=== PATIENT | male | born 1930 | race Caucasian/White ===

== ENCOUNTER 2019-08-16 06:13 | Day surgery (SDC) | payer MEDICARE, OTHER ==
[~2019-08-16] VITALS: Ht 180.3 cm; Wt 76.2 kg
[2019-08-16] VITALS (16 sets, daily range): BP systolic 108–140; BP diastolic 55–68
[~2019-08-16 06:13] MED LIST: ALEN70TA60 PO; CALCIUM PO; CHOL2000 PO; DIGO125T97 PO; DILT-35 PO; DOCU100C41 PO; PSYL3.4P5 PO; RANI150T8 PO; SIMV-42 PO
[2019-08-16] MEDS ORDERED: atropine 0.1mg/ml 10ml syringe IV ONE (06:40)
[2019-08-16] MEDS ORDERED: fentaNYL/PF 50MCG/1 ML 2ML syringe IV ONE (06:40)
[2019-08-16] MEDS ORDERED: MIDAZolam 1mg/ml 10ml vial IV ONE (06:40)
[2019-08-16] MEDS ORDERED: FERR325T28 PO (07:05)
[2019-08-16] MEDS ORDERED: RIVA15TA PO (07:05)
[2019-08-16] MEDS ORDERED: FAMO20TA8 PO (07:05)
[2019-08-16] MEDS ORDERED: DILT120C10 PO (07:05)
[2019-08-16] MEDS ORDERED: [UNRECOGNIZED DRUG - CODE] (07:05)
[2019-08-16 07:07] LABS: BASOPHILS % (AUTO) 1.1 % (0-1); EOSINOPHILS # (AUTO) 0.1 X10'3 (0-0.9); EOSINOPHILS % (AUTO) 1.9 % (0-6); HEMOGLOBIN 9.7 g/dl (14.0-17.9); LYMPHOCYTES # (AUTO) 0.5 X10'3 (1.1-4.8); LYMPHOCYTES % (AUTO) 13.8 % (21-51); MEAN CORPUSCULAR HEMOGLOBIN 34.5 PG (27.0-31.0); MEAN CORPUSCULAR HGB CONC 33.4 g/dL (33.0-36.5); MEAN CORPUSCULAR VOLUME 103.4 FL (78-98); MEAN PLATELET VOLUME 7.7 FL (7.4-10.4); MONOCYTES # (AUTO) 0.6 X10'3 (0-0.9); MONOCYTES % (AUTO) 17.3 % (2-12); NEUTROPHILS # (AUTO) 2.5 X10'3 (1.8-7.7); NEUTROPHILS % (AUTO) 65.9 % (42-75); PLATELET COUNT 319 X10'3 (140-440); RED CELL DISTRIBUTION WIDTH 24.9 % (11.5-14.5); WHITE BLOOD COUNT 3.7 X10'3 (4.5-11.0)
[2019-08-16 07:19] LABS: ALBUMIN 3.3 G/DL (3.4-5.0); ANION GAP 5 (8-16); BLOOD UREA NITROGEN 12 MG/DL (7-18); BUN/CREATININE RATIO 13.5 (5.4-32.0); CALCIUM 8.3 MG/DL (8.5-10.1); CHLORIDE 108 MMOL/L (99-107); CREATININE 0.89 MG/DL (0.60-1.10); GLUCOSE 115 MG/DL (70-104); MAGNESIUM 2.1 MG/DL (1.5-2.4); POTASSIUM 3.9 MMOL/L (3.5-5.1); SODIUM 141 MMOL/L (135-145); TOTAL CARBON DIOXIDE 27.6 MMOL/L (24-32); eGFR 81 ML/MIN
--- NOTE | 2019-08-16 07:56 | NUR ---
Notified pt's procedure was complete per pt request
[2019-08-16 09:00] LABS: TOTAL CELLS COUNTED 100
[2019-08-16 09:01] LABS: ANISOCYTOSIS 3+; PLATELET ESTIMATE NORMAL
[2019-08-16 09:02] LABS: TOXIC GRANULATION 1+
== END 2019-08-16 09:57 | disposition home or self-care (01) ==
LOC: SSTAY O 06:13
PROVIDERS: ATTEND Internal Medicine Cardiovascular Disease
DX: I48.91 Unspecified atrial fibrillation (principal); I25.10 Atherosclerotic heart disease of native coronary artery without angina pectoris; K21.9 Gastro-esophageal reflux disease without esophagitis; I47.1 Supraventricular tachycardia; M19.90 Unspecified osteoarthritis, unspecified site; Z79.899 Other long term (current) drug therapy; Z95.5 Presence of coronary angioplasty implant and graft; Z90.49 Acquired absence of other specified parts of digestive tract; Z96.652 Presence of left artificial knee joint; Z88.8 Allergy status to other drugs, medicaments and biological substances; Z87.01 Personal history of pneumonia (recurrent)
CPT/HCPCS: 36415; 80048; 83735; 85025; 85610; 92960; 93005; J2250; J3010

== ENCOUNTER 2019-09-23 09:04 | Day surgery (SDC) | payer MEDICARE, OTHER ==
[2019-09-23] VITALS (17 sets, daily range): BP systolic 111–134; BP diastolic 53–76
[~2019-09-23] VITALS: Ht 180.3 cm; Wt 74.4 kg
[~2019-09-23 09:04] MED LIST changes: -DILT-35 PO; +DILT120C10 PO; +FAMO20TA8 PO; +FERR325T28 PO; -PSYL3.4P5 PO; -RANI150T8 PO; +RIVA15TA PO; +[UNRECOGNIZED DRUG - CODE]
[2019-09-23] MEDS ORDERED: MIDAZolam 1mg/ml 10ml vial IV ONE (09:50)
[2019-09-23] MEDS ORDERED: fentaNYL/PF 50MCG/1 ML 2ML syringe IV ONE (09:50)
[2019-09-23] MEDS ORDERED: normal saline 1000ml 1,000 ML IV SCH (09:50)
[2019-09-23 10:22] LABS: BASOPHILS % (AUTO) 1.1 % (0-1); EOSINOPHILS % (AUTO) 0.7 % (0-6); HEMATOCRIT 22.7 % (42.0-52.0); HEMOGLOBIN 7.8 g/dl (14.0-17.9); LYMPHOCYTES # (AUTO) 0.5 X10'3 (1.1-4.8); LYMPHOCYTES % (AUTO) 16.1 % (21-51); MEAN CORPUSCULAR HEMOGLOBIN 37.5 PG (27.0-31.0); MEAN CORPUSCULAR HGB CONC 34.5 g/dL (33.0-36.5); MEAN CORPUSCULAR VOLUME 108.8 FL (78-98); MEAN PLATELET VOLUME 8.4 FL (7.4-10.4); MONOCYTES # (AUTO) 0.8 X10'3 (0-0.9); MONOCYTES % (AUTO) 28.6 % (2-12); NEUTROPHILS # (AUTO) 1.6 X10'3 (1.8-7.7); NEUTROPHILS % (AUTO) 53.5 % (42-75); PLATELET COUNT 215 X10'3 (140-440); RED BLOOD COUNT 2.09 X10'6 (4.70-6.10); RED CELL DISTRIBUTION WIDTH 26.8 % (11.5-14.5)
[2019-09-23] MEDS ORDERED: AMIO200T27 PO (10:25)
[2019-09-23 10:27] LABS: ALBUMIN 3.3 G/DL (3.4-5.0); ANION GAP 7 (8-16); BLOOD UREA NITROGEN 15 MG/DL (7-18); CALCIUM 7.8 MG/DL (8.5-10.1); CHLORIDE 108 MMOL/L (99-107); CREATININE 0.94 MG/DL (0.60-1.10); GLUCOSE 105 MG/DL (70-104); MAGNESIUM 2.1 MG/DL (1.5-2.4); POTASSIUM 4.2 MMOL/L (3.5-5.1); SODIUM 143 MMOL/L (135-145); TOTAL CARBON DIOXIDE 28.1 MMOL/L (24-32); eGFR 76 ML/MIN
[2019-09-23 10:53] LABS: TOTAL CELLS COUNTED 100
[2019-09-23 10:54] LABS: ANISOCYTOSIS 3+; PLATELET ESTIMATE NORMAL
[2019-09-23 10:55] LABS: ELLIPTOCYTES 1+; HYPOCHROMASIA 1+; POLYCHROMASIA FEW; SCHISTOCYTES FEW; TEAR DROP CELLS 1+
== END 2019-09-23 14:10 | disposition home or self-care (01) ==
LOC: SSTAY O 09:04
PROVIDERS: ATTEND Internal Medicine Cardiovascular Disease
DX: I48.4 Atypical atrial flutter (principal); I25.10 Atherosclerotic heart disease of native coronary artery without angina pectoris; D46.9 Myelodysplastic syndrome, unspecified; I47.1 Supraventricular tachycardia; K21.9 Gastro-esophageal reflux disease without esophagitis; M19.90 Unspecified osteoarthritis, unspecified site; M81.0 Age-related osteoporosis without current pathological fracture; Z95.5 Presence of coronary angioplasty implant and graft; Z79.899 Other long term (current) drug therapy; Z90.49 Acquired absence of other specified parts of digestive tract; Z96.652 Presence of left artificial knee joint; Z88.8 Allergy status to other drugs, medicaments and biological substances
CPT/HCPCS: 36415; 80048; 83735; 85025; 85610; 92960; 93005; 94760; J2250; J3010; J7030

== ENCOUNTER 2019-11-04 12:27 | Inpatient (IN) | payer MEDICARE, OTHER ==
[~2019-11-04] VITALS: Ht 180.3 cm; Wt 75.0 kg
[~2019-11-04 12:27] MED LIST changes: +AMIO200T27 PO; -DIGO125T97 PO; -DOCU100C41 PO; -FAMO20TA8 PO; -FERR325T28 PO
--- NOTE | 2019-11-04 12:40 | NUR ---
Dr. Jl Sevilla cardiology [id number]
[2019-11-04 12:50] LABS: BASOPHILS # (AUTO) 0.1 X10'3 (0-0.2); BASOPHILS % (AUTO) 1.6 % (0-1); EOSINOPHILS # (AUTO) 0.1 X10'3 (0-0.9); EOSINOPHILS % (AUTO) 2.1 % (0-6); HEMATOCRIT 23.9 % (42.0-52.0); HEMOGLOBIN 8.1 g/dl (14.0-17.9); LYMPHOCYTES # (AUTO) 0.7 X10'3 (1.1-4.8); LYMPHOCYTES % (AUTO) 20.3 % (21-51); MEAN CORPUSCULAR HEMOGLOBIN 34.2 PG (27.0-31.0); MEAN CORPUSCULAR HGB CONC 33.9 g/dL (33.0-36.5); MEAN CORPUSCULAR VOLUME 100.8 FL (78-98); MEAN PLATELET VOLUME 7.8 FL (7.4-10.4); MONOCYTES # (AUTO) 0.7 X10'3 (0-0.9); MONOCYTES % (AUTO) 18.4 % (2-12); NEUTROPHILS # (AUTO) 2.1 X10'3 (1.8-7.7); NEUTROPHILS % (AUTO) 57.6 % (42-75); PLATELET COUNT 279 X10'3 (140-440); RED BLOOD COUNT 2.37 X10'6 (4.70-6.10); WHITE BLOOD COUNT 3.6 X10'3 (4.5-11.0)
[2019-11-04] MEDS ORDERED: iohexol 350MG/ML 100ml bottle IV ONE (13:01)
[2019-11-04 13:03] LABS: PARTIAL THROMBOPLASTIN TIME 36 SECONDS (22-32)
[2019-11-04 13:07] LABS: ALANINE AMINOTRANSFERASE 43 U/L (12-78); ALBUMIN 3.6 G/DL (3.4-5.0); ALKALINE PHOSPHATASE 207 IU/L (46-116); ANION GAP 6 (8-16); ASPARTATE AMINO TRANSFERASE 24 U/L (10-37); BILIRUBIN,TOTAL 0.7 MG/DL (0.1-1.0); BLOOD UREA NITROGEN 16 MG/DL (7-18); BUN/CREATININE RATIO 16.2 (5.4-32.0); CALCIUM 8.4 MG/DL (8.5-10.1); CHLORIDE 106 MMOL/L (99-107); CREATININE 0.99 MG/DL (0.60-1.10); GLUCOSE 125 MG/DL (70-104); POTASSIUM 4.4 MMOL/L (3.5-5.1); SODIUM 140 MMOL/L (135-145); TOTAL CARBON DIOXIDE 28.4 MMOL/L (24-32); TOTAL PROTEIN 7.2 G/DL (6.4-8.2); eGFR 71 ML/MIN
[2019-11-04 13:10] LABS: TROPONIN I < 0.04 NG/ML (0.0-0.05)
[2019-11-04 13:15] LABS: PLATELET ESTIMATE NORMAL; POLYCHROMASIA 1+
[2019-11-04] MEDS ORDERED: aspirin 325mg tablet PO ONE (13:15)
[2019-11-04 13:16] LABS: ANISOCYTOSIS 3+; ELLIPTOCYTES 1+; HYPOCHROMASIA 1+; TEAR DROP CELLS FEW
--- NOTE | 2019-11-04 13:22 | NUR ---
pt went to ct scan 5 mins prior with stroke nurse rubia.
[2019-11-04] MEDS ORDERED: CALC600T22 PO (13:34)
[2019-11-04] MEDS ORDERED: MULT-227 PO (13:35)
[2019-11-04] MEDS ORDERED: ASCO500C17 PO (13:35)
[2019-11-04] MEDS ORDERED: non-formulary drug (Alendronate Sodium* (Fosamax*) 1 TABLET) PO SCH (13:50)
[2019-11-04] MEDS ORDERED: ondansetron/PF 4mg/2ml inj IV PRN (13:55)
[2019-11-04] MEDS ORDERED: HYDROcodone/acetaminophen 5mg/325mg tablet PO PRN (13:55)
[2019-11-04] MEDS ORDERED: mag hydrox/Alum hydrox/simeth 30ml oral suspension PO PRN (13:55)
[2019-11-04] MEDS ORDERED: HYDROcodone/acetaminophen 10/325mg tab PO PRN (13:55)
[2019-11-04] MEDS ORDERED: acetaminophen 325mg tablet PO PRN ×2 (13:55)
[2019-11-04 14:15] VITALS: BP 134/62
--- NOTE | 2019-11-04 14:27 | NUR ---
Patient in room . I have received report from [facility] and had the opportunity to ask questions and assume patient care.
[2019-11-04 18:00] VITALS: BP 106/67
[2019-11-04] MEDS ORDERED: normal saline 1000ml 1,000 ML IV ONE (18:15)
[2019-11-04] MEDS: normal saline 1000ml 1,000 ML IV SCH (18:15)
--- NOTE | 2019-11-04 18:15 | NUR ---
Patient in room ORTHO 4022. I have received report from Yazmin CRENSHAW and had the opportunity to ask questions and assume patient care.
--- NOTE | 2019-11-04 18:23 | NUR ---
Dr Blackmon notified of patient having some right hand weakness and systolic BP is only 106 order received for 250cc NS bolus and NS IV at 100cc/hr for 24 hours.
--- NOTE | 2019-11-04 18:39 | NUR ---
Problems reprioritized. Patient report given, questions answered & plan of care reviewed with
[2019-11-04] MEDS: calcium carbonate 500mg tablet PO SCH (20:00)
[2019-11-04] MEDS: docusate sod 100mg capsule PO SCH (20:00)
--- NOTE | 2019-11-04 21:37 | NUR ---
Called hospitalist, informed him that the patient is experiencing slight increase in slurred speech and right sided facial droop. Fluids are currently infusing per orders at 100ml/hr. BP currently 124/80 HR 57. Was advised to continue treatment as ordered. Will continue to monitor.
[2019-11-04 22:00] VITALS: BP 124/80
--- NOTE | 2019-11-04 22:30 | NUR ---
Patients symptoms are improving from last note, his right sided facial droop is improving and speech is back to previous neuro assessment done at 1999. Patient reports that right hand numbness has stayed the same. (refer to neuro checks). Will continue to monitor.
[2019-11-05] VITALS (12 sets, daily range): BP systolic 120–143; BP diastolic 57–86
[2019-11-05] MEDS: normal saline 1000ml 1,000 ML IV SCH ×2 (04:15→14:15)
--- NOTE | 2019-11-05 06:33 | NUR ---
Problems reprioritized. Patient report given, questions answered & plan of care reviewed with Yazmin CRENSHAW.
--- NOTE | 2019-11-05 06:40 | NUR ---
Patient in room ORTHO 4022. I have received report from Coleen/Jennifer and had the opportunity to ask questions and assume patient care.
[2019-11-05 07:06] LABS: BASOPHILS % (AUTO) 1.1 % (0-1); EOSINOPHILS # (AUTO) 0.1 X10'3 (0-0.9); EOSINOPHILS % (AUTO) 1.6 % (0-6); HEMOGLOBIN 7.2 g/dl (14.0-17.9); LYMPHOCYTES # (AUTO) 0.3 X10'3 (1.1-4.8); LYMPHOCYTES % (AUTO) 10.5 % (21-51); MEAN CORPUSCULAR HEMOGLOBIN 35.5 PG (27.0-31.0); MEAN CORPUSCULAR VOLUME 101.3 FL (78-98); MEAN PLATELET VOLUME 7.9 FL (7.4-10.4); MONOCYTES # (AUTO) 0.6 X10'3 (0-0.9); NEUTROPHILS # (AUTO) 2.2 X10'3 (1.8-7.7); NEUTROPHILS % (AUTO) 68.8 % (42-75); PLATELET COUNT 212 X10'3 (140-440); RED BLOOD COUNT 2.04 X10'6 (4.70-6.10); WHITE BLOOD COUNT 3.2 X10'3 (4.5-11.0)
[2019-11-05 07:11] LABS: HEMATOCRIT 20.6 % (42.0-52.0)
--- NOTE | 2019-11-05 07:15 | NUR ---
PAGER ID: [phone] MESSAGE: Yazmin Lopez on ortho, Mr. Feldman in [id number] critical hematocrit of 20.6, pt has antibodies/ would need blood from [facility] if needs to transfuse
[2019-11-05 07:23] LABS: ALANINE AMINOTRANSFERASE 35 U/L (12-78); ALBUMIN 3.2 G/DL (3.4-5.0); ALKALINE PHOSPHATASE 186 IU/L (46-116); ANION GAP 6 (8-16); ASPARTATE AMINO TRANSFERASE 21 U/L (10-37); BILIRUBIN,TOTAL 0.7 MG/DL (0.1-1.0); BLOOD UREA NITROGEN 11 MG/DL (7-18); BUN/CREATININE RATIO 12.9 (5.4-32.0); CALCIUM 8.3 MG/DL (8.5-10.1); CHLORIDE 108 MMOL/L (99-107); CHOL/HDL RATIO 1.7 (0.00-4.99); CHOLESTEROL 89 MG/DL (0-200); CREATININE 0.85 MG/DL (0.60-1.10); GLUCOSE 108 MG/DL (70-104); HDL CHOLESTEROL 52 MG/DL (35-60); LDL CHOLESTEROL 32 MG/DL (50-100); POTASSIUM 4.2 MMOL/L (3.5-5.1); SODIUM 141 MMOL/L (135-145); TOTAL CARBON DIOXIDE 26.8 MMOL/L (24-32); TOTAL PROTEIN 6.3 G/DL (6.4-8.2); TRIGLYCERIDES 28 MG/DL (20-135); eGFR 85 ML/MIN
[2019-11-05] MEDS ORDERED: rivaroxaban 15mg tablet PO SCH ×2 (08:00→21:00)
[2019-11-05] MEDS ORDERED: atorvastatin 10mg tablet PO SCH ×2 (08:00→21:00)
[2019-11-05] MEDS: amiodarone 200mg tablet PO SCH (08:32)
[2019-11-05] MEDS: aspirin 81mg tablet.DR PO SCH (08:32)
[2019-11-05] MEDS: docusate sod 100mg capsule PO SCH ×2 (08:32→20:30)
[2019-11-05] MEDS: multivitamins, therapeutics tablet PO SCH (08:35)
[2019-11-05] MEDS: calcium carbonate 500mg tablet PO SCH ×2 (08:35→20:30)
[2019-11-05] MEDS: ascorbic acid 500mg tablet PO SCH (08:35)
[2019-11-05] MEDS: vitamin D (cholecalciferol) 1,000 unit tablet PO SCH (08:36)
[2019-11-05 09:05] LABS: TOTAL CELLS COUNTED 100
[2019-11-05 09:08] LABS: ANISOCYTOSIS 3+; ELLIPTOCYTES 1+; PLATELET ESTIMATE NORMAL; POLYCHROMASIA FEW; TEAR DROP CELLS FEW
--- NOTE | 2019-11-05 11:30 | NUR ---
Dr Blackmon notified of of patient having some difficulty closing right eye, ct of head ordered and neurology notified.
--- NOTE | 2019-11-05 18:30 | NUR ---
Problems reprioritized. Patient report given, questions answered & plan of care reviewed with Gudelia Purcell
--- NOTE | 2019-11-05 18:55 | NUR ---
Dr. Blackmon was called to ask him to change the code status per patient's request; he said he did not want to change code status without talking to patient and he was unable to talk to patient at this time.He recommended that we have the night hospitalist talk to patient and make the code status change.
[2019-11-06] VITALS: BP 124/65
[2019-11-06 00:09] VITALS: BP 127/66
[2019-11-06 01:00] VITALS: BP 129/72
[2019-11-06 04:00] VITALS: BP 134/72
[2019-11-06 06:00] VITALS: BP 121/65
--- NOTE | 2019-11-06 06:10 | NUR ---
received report from dina newby
--- NOTE | 2019-11-06 06:25 | NUR ---
Problems reprioritized. Patient report given, questions answered & plan of care reviewed with DEN Hines.
[2019-11-06 06:36] LABS: BASOPHILS % (AUTO) 1.2 % (0-1); EOSINOPHILS % (AUTO) 1.3 % (0-6); HEMATOCRIT 27.2 % (42.0-52.0); HEMOGLOBIN 9.4 g/dl (14.0-17.9); LYMPHOCYTES # (AUTO) 0.6 X10'3 (1.1-4.8); MEAN CORPUSCULAR HEMOGLOBIN 34.2 PG (27.0-31.0); MEAN CORPUSCULAR HGB CONC 34.6 g/dL (33.0-36.5); MEAN CORPUSCULAR VOLUME 98.9 FL (78-98); MEAN PLATELET VOLUME 7.8 FL (7.4-10.4); MONOCYTES # (AUTO) 0.7 X10'3 (0-0.9); MONOCYTES % (AUTO) 20.4 % (2-12); NEUTROPHILS # (AUTO) 2.2 X10'3 (1.8-7.7); NEUTROPHILS % (AUTO) 61.1 % (42-75); PLATELET COUNT 227 X10'3 (140-440); RED BLOOD COUNT 2.75 X10'6 (4.70-6.10); RED CELL DISTRIBUTION WIDTH 23.5 % (11.5-14.5); WHITE BLOOD COUNT 3.5 X10'3 (4.5-11.0)
[2019-11-06 07:06] LABS: ALANINE AMINOTRANSFERASE 32 U/L (12-78); ALBUMIN 3.2 G/DL (3.4-5.0); ALKALINE PHOSPHATASE 182 IU/L (46-116); ANION GAP 7 (8-16); ASPARTATE AMINO TRANSFERASE 20 U/L (10-37); BILIRUBIN,TOTAL 1.3 MG/DL (0.1-1.0); BLOOD UREA NITROGEN 16 MG/DL (7-18); BUN/CREATININE RATIO 17.8 (5.4-32.0); CALCIUM 8.7 MG/DL (8.5-10.1); CHLORIDE 108 MMOL/L (99-107); GLUCOSE 105 MG/DL (70-104); POTASSIUM 4.1 MMOL/L (3.5-5.1); SODIUM 141 MMOL/L (135-145); TOTAL CARBON DIOXIDE 26.3 MMOL/L (24-32); TOTAL PROTEIN 6.5 G/DL (6.4-8.2); eGFR 80 ML/MIN
[2019-11-06] MEDS: amiodarone 200mg tablet PO SCH (07:17)
[2019-11-06] MEDS: docusate sod 100mg capsule PO SCH (07:17)
[2019-11-06] MEDS: multivitamins, therapeutics tablet PO SCH (07:18)
[2019-11-06] MEDS: aspirin 81mg tablet.DR PO SCH (07:18)
[2019-11-06] MEDS: calcium carbonate 500mg tablet PO SCH (07:18)
[2019-11-06] MEDS: ascorbic acid 500mg tablet PO SCH (07:18)
[2019-11-06] MEDS: vitamin D (cholecalciferol) 1,000 unit tablet PO SCH (07:19)
[2019-11-06 07:28] LABS: ANISOCYTOSIS 3+; PLATELET ESTIMATE NORMAL; TOTAL CELLS COUNTED 100
[2019-11-06 07:29] LABS: ELLIPTOCYTES 1+; POLYCHROMASIA FEW; TEAR DROP CELLS FEW
[2019-11-06 10:00] VITALS: BP 123/72
[2019-11-06] MEDS ORDERED: ASPI-1071 PO (12:18)
--- NOTE | 2019-11-06 13:48 | NUR ---
PT D/C WITH INSTRUCTIONS, UNDERSTANDING OF INSTRUCTIONS AND W/ALL BELONGINGS IN WHEELCHAIR ACCOMPANIED BY NURSING STAFF TO PRIVATE VEHICLE TO GO HOME AND F/U W/PCP
[2019-11-10] MEDS ORDERED: epoetin 20,000 units/ml inj SQ SCH (08:00)
[2019-11-10] MEDS ORDERED: EPOETIN ALFA SQ SCH (08:00)
== END 2019-11-06 13:52 | disposition home health service (06) | DRG 65 ==
LOC: ER 12:28 → ED HOLD 13:51 → ORTHO 4S 14:58
PROVIDERS: ADMIT Family Medicine; ATTEND Family Medicine
PROC: B3251ZZ Computerized Tomography (CT Scan) of Bilateral Common Carotid Arteries using Low Osmolar Contrast (ICD-10-PCS; 2019-11-04)
PROC: B32G1ZZ Computerized Tomography (CT Scan) of Bilateral Vertebral Arteries using Low Osmolar Contrast (ICD-10-PCS; 2019-11-04)
PROC: B3281ZZ Computerized Tomography (CT Scan) of Bilateral Internal Carotid Arteries using Low Osmolar Contrast (ICD-10-PCS; 2019-11-04)
PROC: 30233N1 Transfusion of Nonautologous Red Blood Cells into Peripheral Vein, Percutaneous Approach (ICD-10-PCS; principal; 2019-11-05)
DX: I63.9 Cerebral infarction, unspecified (principal); I48.20 Chronic atrial fibrillation, unspecified; I48.92 Unspecified atrial flutter; D46.9 Myelodysplastic syndrome, unspecified; I10 Essential (primary) hypertension; I25.10 Atherosclerotic heart disease of native coronary artery without angina pectoris; D53.9 Nutritional anemia, unspecified; K21.9 Gastro-esophageal reflux disease without esophagitis; R00.1 Bradycardia, unspecified; I95.9 Hypotension, unspecified; R73.9 Hyperglycemia, unspecified; Z79.01 Long term (current) use of anticoagulants; Z79.82 Long term (current) use of aspirin; Z79.83 Long term (current) use of bisphosphonates; I25.2 Old myocardial infarction; Z80.3 Family history of malignant neoplasm of breast; Z82.49 Family history of ischemic heart disease and other diseases of the circulatory system; Z86.73 Personal history of transient ischemic attack (TIA), and cerebral infarction without residual deficits; Z95.1 Presence of aortocoronary bypass graft; Z95.5 Presence of coronary angioplasty implant and graft; Z88.8 Allergy status to other drugs, medicaments and biological substances; Z79.899 Other long term (current) drug therapy; Z98.42 Cataract extraction status, left eye; Z98.41 Cataract extraction status, right eye
CPT/HCPCS: 36415; 36430; 70450; 70496; 70498; 71045; 80053; 80061; 82948; 84443; 84484; 85025; 85610; 85651; 85730; 86870; 86885; 86900; 86901; 86902; 86922; 87081; 93005; 93306; 97112; 97116; 97161; 97530; 99291; G0378; J7030; P9016; Q9967

== ENCOUNTER 2019-11-28 07:58 | Day surgery (SDC) | payer MEDICARE, OTHER ==
[~2019-11-28] VITALS: Ht 180.3 cm; Wt 74.7 kg
[2019-11-28] VITALS (16 sets, daily range): BP systolic 114–147; BP diastolic 59–79
[~2019-11-28 07:58] MED LIST changes: +ASCO500C17 PO; +ASPI-1071 PO; +CALC600T22 PO; -CALCIUM PO; -DILT120C10 PO; +MULT-227 PO
[2019-11-28] MEDS ORDERED: fentaNYL/PF 50MCG/1 ML 2ML syringe IV ONE (08:30)
[2019-11-28] MEDS ORDERED: normal saline 1000ml 1,000 ML IV SCH (08:30)
[2019-11-28] MEDS ORDERED: MIDAZolam 1mg/ml 10ml vial IV ONE (08:30)
[2019-11-28] MEDS ORDERED: FAMO-49 PO (08:34)
[2019-11-28] MEDS ORDERED: ASPI-611 PO (08:38)
[2019-11-28 08:41] LABS: BASOPHILS # (AUTO) 0.1 X10'3 (0-0.2); BASOPHILS % (AUTO) 1.7 % (0-1); EOSINOPHILS # (AUTO) 0.1 X10'3 (0-0.9); EOSINOPHILS % (AUTO) 1.6 % (0-6); HEMOGLOBIN 7.3 g/dl (14.0-17.9); LYMPHOCYTES # (AUTO) 0.5 X10'3 (1.1-4.8); LYMPHOCYTES % (AUTO) 14.4 % (21-51); MEAN CORPUSCULAR HEMOGLOBIN 34.1 PG (27.0-31.0); MEAN CORPUSCULAR HGB CONC 34.4 g/dL (33.0-36.5); MEAN CORPUSCULAR VOLUME 99.1 FL (78-98); MEAN PLATELET VOLUME 7.9 FL (7.4-10.4); MONOCYTES # (AUTO) 0.6 X10'3 (0-0.9); MONOCYTES % (AUTO) 16.2 % (2-12); NEUTROPHILS # (AUTO) 2.4 X10'3 (1.8-7.7); NEUTROPHILS % (AUTO) 66.1 % (42-75); PLATELET COUNT 224 X10'3 (140-440); RED BLOOD COUNT 2.13 X10'6 (4.70-6.10); RED CELL DISTRIBUTION WIDTH 22.7 % (11.5-14.5); WHITE BLOOD COUNT 3.6 X10'3 (4.5-11.0)
[2019-11-28 08:50] LABS: ALBUMIN 3.6 G/DL (3.4-5.0); ANION GAP 6 (8-16); BLOOD UREA NITROGEN 17 MG/DL (7-18); BUN/CREATININE RATIO 15.2 (5.4-32.0); CHLORIDE 106 MMOL/L (99-107); CREATININE 1.12 MG/DL (0.60-1.10); GLUCOSE 112 MG/DL (70-104); MAGNESIUM 2.1 MG/DL (1.5-2.4); POTASSIUM 4.4 MMOL/L (3.5-5.1); SODIUM 142 MMOL/L (135-145); TOTAL CARBON DIOXIDE 30.4 MMOL/L (24-32); eGFR 62 ML/MIN
[2019-11-28 08:51] LABS: HEMATOCRIT 21.1 % (42.0-52.0)
--- NOTE | 2019-11-28 09:28 | NUR ---
Informed of critical lab. No new orders given.
[2019-11-28 10:12] LABS: ANISOCYTOSIS 3+; PLATELET ESTIMATE NORMAL; TOTAL CELLS COUNTED 100
[2019-11-28 10:13] LABS: HYPOCHROMASIA 1+; SCHISTOCYTES FEW
[2019-11-28 10:14] LABS: TOXIC GRANULATION 1+
[2019-11-28 10:15] LABS: POIKILOCYTOSIS FEW
== END 2019-11-28 11:50 | disposition home or self-care (01) ==
LOC: SSTAY O 07:58
PROVIDERS: ATTEND Internal Medicine Cardiovascular Disease
DX: I48.3 Typical atrial flutter (principal)
CPT/HCPCS: 36415; 80048; 83735; 85007; 85025; 85610; 92960; 93005; J2250; J3010